=== PATIENT | male | born 1980 | race Caucasian/White ===

== ENCOUNTER 2022-06-09 11:02 | Outpatient (REF) | payer OTHER, SELFPAY ==
--- NOTE | ~2022-06-09 | XR_ITS ---
EXAMINATION: XR CERVICAL SPINE CLINICAL INFORMATION: Ankylosing spondylitis. COMPARISON: None TECHNIQUE: Frontal, odontoid, bilateral oblique, lateral and swimmer's views of the cervical spine were obtained. FINDINGS: Vertebral body heights and alignment are normal. The cervical disc spaces are well-maintained. No acute fracture or spondylolisthesis is seen. There is mild anterior spondylosis at C4-C5 through C6-C7. The posterior elements are intact. There is right neural foraminal narrowing at C6-C7, and left neural foraminal narrowing is seen at C3-C4. The dens is intact. No prevertebral soft tissue swelling is seen. XR/XR cervical spine 4V IMPRESSION: 1. No acute fracture or spondylolisthesis is seen. 2. The cervical disc spaces are well-maintained. 3. There is multi-level mild cervical spondylosis. 4. There is right neural foraminal narrowing at C6-C7, and left neural foraminal narrowing is seen at C3-C4.
--- NOTE | ~2022-06-09 | XR_ITS ---
EXAMINATION: XR SACROILIAC JOINTS CLINICAL INFORMATION: Ankylosing spondylitis. COMPARISON: None TECHNIQUE: AP and bilateral Judet views of the sacroiliac joints. FINDINGS: Bones and soft tissues are normal. No fracture. Alignment is anatomic. Sacroiliac joint spaces are well-maintained without erosions or surrounding sclerosis. Intact bilateral hip arthroplasties are partially included in the [id number]. There are incompletely characterized degenerative changes of the lower lumbar spine. XR/XR sacroiliac joint min 3V IMPRESSION: Normal sacroiliac joints.
[2022-06-09 12:31] LABS: MANUAL DIFF FLAG NO
[2022-06-09 13:49] LABS: Basophils Percent Auto 0.3 % (0-2); Eosinophils Absolute Auto 0.2 X10*3/uL (0.0-0.4); Hematocrit 41.8 % (42.0-52.0); Hemoglobin 13.2 g/dl (14.0-18.0); Imm Gran Abs Auto 0.03 X10*3/uL (0.00-0.03); Imm Gran Pct Auto 0.3 % (0.0-0.4); Lymphocytes Absolute Auto 2.4 X10*3/uL (1.2-4.9); Lymphocytes Percent Auto 26.7 % (20-40); Mean Corpuscular HGB Conc 31.6 g/dl (31.0-36.0); Mean Corpuscular Hemoglobin 19.8 pg (27.0-33.0); Mean Platelet Volume 10.4 fL (9.4-12.4); Monocytes Absolute Auto 0.9 X10*3/uL (0.1-1.2); Neutrophils Absolute Auto 5.3 x10*3/uL (2.0-8.3); Neutrophils Percent Auto 60.7 % (45-73); Platelet Count 257 X10*3/uL (160-400); Red Blood Count 6.66 X10*6/uL (4.60-5.80); Red Cell Distribution Width 17.7 % (11.0-16.0)
[2022-06-09 13:55] LABS: Mean Corpuscular Volume 62.8 fL (80.0-98.0); White Blood Count 8.8 X10*3/uL (4.8-10.8)
[2022-06-09 14:58] LABS: Alanine Aminotransferase 35 U/L (0-40); Albumin Level 4.7 g/dL (3.5-5.0); Alkaline Phosphatase 68 U/L (39-117); Anion Gap 12 (12-20); Aspartate Amino Transferase 22 U/L (5-37); Bilirubin Total 0.7 mg/dL (0.0-1.0); Blood Urea Nitrogen 17 mg/dL (9-16); C Reactive Protein 0.17 mg/dL (< or = 0.50); Calcium 9.6 mg/dL (8.4-10.2); Carbon Dioxide 26 mmol/L (22-29); Chloride 105 mmol/L (96-108); Estimated Glomerular Filt Rate > 60; Glucose Random 79 mg/dL (60-115); Potassium 4.9 mmol/L (3.3-5.1); Rheumatoid Factor < 13.0 IU/mL (<15.0); Sodium 138 mmol/L (135-145); Total Protein 6.8 g/dL (6.5-8.0); Uric Acid 5.6 mg/dL (3.4-7.0)
[2022-06-09 17:07] LABS: Erythrocyte Sedimentation Rate 1 MM/HR (0-15)
[2022-06-10 09:04] LABS: HBc Num1 0.07 S/CO (0.00-0.79); HBsAGNum1 0.42 S/CO (0.00-0.99); Hepatitis B Core Antibody Nonreactive (Nonreactive); Hepatitis B Surface Antigen Negative (Negative); ~HepC Num1 0.05 S/CO (0.00-0.79); ~Hepatitis A Antibody IgM Nonreactive (Nonreactive); ~Hepatitis C Antibody Nonreactive (Nonreactive)
[2022-06-10 09:35] LABS: HIV AB/AG Nonreactive (Nonreactive); HIV Num 1 0.06 S/CO (0.00-0.99); ~Hepatitis B Surface Antibody NONREACTIVE (Nonreactive)
[2022-06-11 23:05] LABS: TS Negative Control Passed; TS Panel A 0; TS Panel B 0; TS Positive Control Passed; TSpotTB Negative (Negative)
[2022-06-12 13:48] LABS: Cyclic Citrullinated Peptide <16 UNITS
[2022-06-13 11:14] LABS: HLA B27 Negative (Negative)
[2022-06-14 10:53] LABS: Prot Elec - Alpha1 0.2 g/dL (0.2-0.3); Prot Elec - Alpha2 0.6 g/dL (0.5-0.9); Prot Elec - Beta 1 0.4 g/dL (0.4-0.6); Prot Elec - Beta 2 0.2 g/dL (0.2-0.5); Prot Elec - Gamma 0.6 g/dL (0.8-1.7)
[2022-06-14 14:43] LABS: IgA 92 mg/dL (47-310); IgG 643 mg/dL (600-1640); IgM 87 mg/dL (50-300)
== END 2022-06-09 11:03 | disposition home or self-care (01) ==
LOC: HO.LAB 11:02
PROVIDERS: PCP Nurse Practitioner Gerontology; Visit Provider Student in an Organized Health Care Education/Training Program
DX: M25.511 Pain in right shoulder (principal); M25.512 Pain in left shoulder; M45.0 Ankylosing spondylitis of multiple sites in spine; M54.9 Dorsalgia, unspecified; Z11.7 Encounter for testing for latent tuberculosis infection; Z11.59 Encounter for screening for other viral diseases; Z79.899 Other long term (current) drug therapy; Z96.643 Presence of artificial hip joint, bilateral
CPT/HCPCS: 36415; 72050; 72202; 80053; 82784; 84165; 84550; 85025; 85652; 86140; 86200; 86334; 86431; 86481; 86704; 86706; 86709; 86803; 86812; 87340; 87389

== ENCOUNTER 2022-06-30 07:19 | Outpatient (REF) | payer OTHER, SELFPAY ==
--- NOTE | ~2022-06-30 | XR_ITS ---
EXAMINATION: PRE-MRI ORBITS. CLINICAL INFORMATION: History of radiopaque foreign body in the eyes. COMPARISON: None TECHNIQUE: 3 views FINDINGS: There are no radiopaque metallic foreign body seen in the orbits. The paranasal sinuses and the mastoid sinuses are well-aerated. No gross bony abnormality. The soft tissues are normal. XR/XR pre mri screening IMPRESSION: No radiopaque metallic foreign body seen in the orbits.
--- NOTE | ~2022-06-30 | MR_ITS ---
EXAMINATION: MR SACROILIAC JOINT WITHOUT CONTRAST, BILATERAL CLINICAL INFORMATION: Loss of flexibility. Ankylosing spondylitis. COMPARISON: Sacroiliac joint radiographs dated 06/09/2022 and lumbar spine MRI dated 10/22/2018. TECHNIQUE: Multisequence MR imaging of the sacroiliac joints was obtained without contrast on a high-field strength scanner. FINDINGS: BONE: No significant sacroiliac joint space narrowing. Minimal subchondral sclerosis along the anterior aspect of the sacroiliac joints. No large periarticular erosion. No significant edema to suggest acute sacroiliitis. No osseous bridging. No marrow edema or evidence of acute osseous injury. No concerning lytic or blastic osseous lesion. No stress reaction or fracture within the sacrum. Partially visualized degenerative disc disease and facet arthropathy within the lower lumbar spine appears increased when compared to the prior MRI. There is marrow edema within the L4 and L5 bilateral pedicles, which could indicate stress reactions or be related to facet arthropathy. Prominent artifact related to bilateral hip arthroplasty. No adjacent edema, however, evaluation somewhat limited due to artifact. MUSCLES/TENDONS: Intact. No edema or evidence of acute muscle or tendon injury. No asymmetric atrophy. INTRAPELVIC STRUCTURES: Unremarkable. SOFT TISSUES: No abnormal soft tissue mass or fluid collection. 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 No evidence of acute sacroiliitis. No osseous bridging across the joint spaces. Partially visualized degenerative disc disease and facet arthropathy within the lower lumbar spine, increased when compared to the prior MRI. Marrow edema within the bilateral L4 and L5 pedicles, which could indicate stress reactions or be related to the facet arthropathy.
== END 2022-06-30 07:20 | disposition home or self-care (01) ==
LOC: HO.MRI 07:19
PROVIDERS: Visit Provider Student in an Organized Health Care Education/Training Program
DX: M45.0 Ankylosing spondylitis of multiple sites in spine (principal)
CPT/HCPCS: 72195

== ENCOUNTER → 2022-07-19 14:05 | Outpatient (BNVA) | payer OTHER, SELFPAY | PROVIDERS: PCP Nurse Practitioner Gerontology; Visit Provider Student in an Organized Health Care Education/Training Program | DX: Z13.89 Encounter for screening for other disorder (principal) ==

== ENCOUNTER → 2022-11-06 09:28 | Outpatient (BNVA) | payer OTHER, SELFPAY | PROVIDERS: PCP Nurse Practitioner Gerontology; Visit Provider Anesthesiology ==